=== PATIENT | female | born 1945 | race Caucasian/White ===

== ENCOUNTER → 2016-05-12 | Outpatient (CLI) | payer OTHER, MEDICARE ==
[2016-05-12 08:09] LABS: BILIRUBIN,TOTAL 0.5 mg/dL (0.3-1.2); CALCIUM 9.4 mg/dL (8.7-10.7); CREATININE 0.8 mg/dL (0.50-1.20); LDL CHOLESTEROL,CALCULATED 92.6 mg/dL; POTASSIUM 3.8 meq/L (3.8-5.2)
== END ==
LOC: LAB 07:00
PROVIDERS: ATTEND Nurse Practitioner Family
DX: E78.5 Hyperlipidemia, unspecified (principal); I10 Essential (primary) hypertension
CPT/HCPCS: 36415; 80048; 82247; 82465; 82550; 82977; 83718; 84075; 84450; 84460; 84478

== ENCOUNTER → 2016-05-19 | Outpatient (CLI) | payer OTHER, MEDICARE | LOC: MMPC 09:00 | PROVIDERS: ATTEND Nurse Practitioner Family | DX: E78.5 Hyperlipidemia, unspecified (principal); I10 Essential (primary) hypertension; E03.9 Hypothyroidism, unspecified; R60.0 Localized edema; G47.33 Obstructive sleep apnea (adult) (pediatric) | CPT/HCPCS: 99214; G0463 ==

== ENCOUNTER → 2016-11-11 | Outpatient (CLI) | payer OTHER, MEDICARE ==
[2016-11-11 07:37] LABS: BUN/CREATININE RATIO 13.75 (6-20); CALCIUM 9.1 mg/dL (8.7-10.7); CHOL/HDL RATIO 3.8 RATIO (0-4.0); LDL CHOLESTEROL,CALCULATED 101.2 mg/dL
== END ==
LOC: LAB 06:50
PROVIDERS: ATTEND Nurse Practitioner Family
DX: I10 Essential (primary) hypertension (principal); E78.5 Hyperlipidemia, unspecified; E03.9 Hypothyroidism, unspecified; G47.33 Obstructive sleep apnea (adult) (pediatric); R60.0 Localized edema
CPT/HCPCS: 36415; 80048; 82247; 82465; 82550; 82977; 83718; 84075; 84443; 84450; 84460; 84478

== ENCOUNTER → 2016-11-17 | Outpatient (CLI) | payer OTHER, MEDICARE | LOC: MMPC 09:00 | PROVIDERS: ATTEND Nurse Practitioner Family | DX: I10 Essential (primary) hypertension (principal); E78.5 Hyperlipidemia, unspecified; E03.9 Hypothyroidism, unspecified; R60.0 Localized edema; R09.02 Hypoxemia | CPT/HCPCS: 99214; G0463 ==